=== PATIENT | female | born 1990 | race Two or more races ===

== ENCOUNTER 2018-09-07 16:00 | Observation (INO) | payer MEDICAID ==
[~2018-09-07] VITALS: Ht 165.1 cm; Wt 84.8 kg
[2018-09-07] MEDS ORDERED: PNV1TABL50 MT (16:39)
[2018-09-07 18:24] LABS: CLARITY URINE CLOUDY (CLEAR); COLOR URINE YELLOW (YELLOW); KETONES URINE TRACE (NEGATIVE); LEUKOCYTE ESTERASE URINE 2+ (NEGATIVE); NITRITE URINE NEGATIVE (NEGATIVE); OCCULT BLOOD URINE 1+ (NEGATIVE); PH URINE 6.5 (4.5-8.0); PROTEIN URINE TRACE (NEGATIVE); SPECIFIC GRAVITY URINE 1.026 (1.005-1.030)
[2018-09-07] MEDS ORDERED: LACTATED RINGERS 1,000 ML IV SCH (21:00)
[2018-09-07] MEDS ORDERED: CEFAZOLIN SODIUM 1000MG/VIAL IV ONE (21:00)
[2018-09-07] MEDS ORDERED: CEFAZOLIN 2000MG in DEXTROSE 5% WATER 100ML IV NR (21:30)
== END 2018-09-07 22:15 | disposition still patient (30) ==
LOC: 8 EST LDRP 16:00
PROVIDERS: ADMIT Obstetrics & Gynecology; ATTEND Obstetrics & Gynecology
DX: O42.913 Preterm premature rupture of membranes, unspecified as to length of time between rupture and onset of labor, third trimester (principal); O62.9 Abnormality of forces of labor, unspecified; Z3A.36 36 weeks gestation of pregnancy
CPT/HCPCS: 76805; 76818; 81003; 87086; 96365; G0378; J0690; 99281; J7060

== ENCOUNTER 2018-09-16 23:12 | Inpatient (IN) | payer MEDICAID ==
[~2018-09-16] VITALS: Ht 165.1 cm; Wt 83.9 kg
[~2018-09-16 23:12] MED LIST: PNV1TABL50 MT
[2018-09-16] MEDS ORDERED: LACTATED RINGERS 1,000 ML IV SCH (23:29)
[2018-09-16] MEDS ORDERED: DEXT 5%/LR + PITOCIN 20UNITS/L 1,000 ML IV SCH (23:29)
[2018-09-16] MEDS ORDERED: CARBOPROST TROMETHAMINE 250 MCG/ML AMPUL IM PRN (23:30)
[2018-09-16] MEDS ORDERED: METHYLERGONOVINE MALEATE 0.2 MG/ML IM PRN (23:30)
[2018-09-16] MEDS ORDERED: DEXT 5%/LACTATED RINGERS 1,000 ML IV SCH (23:30)
[2018-09-17 00:54] LABS: EOSINOPHILS % 0.4 % (0.0-5.0); HEMATOCRIT. 32.5 % (36.0-48.0); HEMOGLOBIN. 10.5 g/dL (12.0-16.0); LYMPHOCYTES % 18.9 % (20.0-50.0); MEAN CORPUSCULAR HEMOGLOBIN 24.6 pg (28.0-32.0); MEAN CORPUSCULAR VOLUME 75.9 fL (81.0-99.0); MEAN PLATELET VOLUME 9.3 fl (7.4-10.4); MONOCYTES % 6.8 % (2.0-8.0); NEUTROPHILS % 72.9 % (40.0-76.0); PLATELET 254 x1000/uL (130-400); RED BLOOD CELL COUNT 4.28 mill/uL (4.2-5.4)
[2018-09-17 01:07] LABS: INR 0.9; PARTIAL THROMBOPLASTIN TIME 24.6 sec (23.4-31.0); PROTHROMBIN TIME 9.5 sec (9.1-11.1)
[2018-09-17 01:40] LABS: HEPATITIS B SURFACE ANTIGEN NEGATIVE
[2018-09-17] MEDS ORDERED: MEPERIDINE HCL/PF 25MG/ML CPJ IV PRN (03:30)
[2018-09-17] MEDS ORDERED: ONDANSETRON HCL 4MG/2ML INJ IV PRN (03:30)
[2018-09-17] MEDS ORDERED: LABETALOL 5MG/ML SYR 20 MG/4 ML SYRINGE IV PRN (03:30)
[2018-09-17] MEDS ORDERED: HYDROMORPHONE HCL/PF 2MG/ML CPJ IV PRN ×2 (03:30→04:30)
[2018-09-17] MEDS ORDERED: KETOROLAC 30MG/ML VIAL IV PRN (03:30)
[2018-09-17] MEDS ORDERED: MORPHINE SULFATE/PF 1MG/ML 10ML AMP ONE (03:38)
[2018-09-17] MEDS ORDERED: BUPIVACAINE HCL/DEXTROSE/PF 0.75% 2ML AMP INJ ONE (03:39)
[2018-09-17] MEDS ORDERED: GLYCOPYRROLATE 0.2 MG/ML 2ML VIAL ONE (04:01)
[2018-09-17] MEDS ORDERED: DEXAMETHASONE 4MG/ML 1ML VIAL ONE (04:17)
[2018-09-17] MEDS ORDERED: ONDANSETRON HCL 4MG/2ML INJ ONE (04:17)
[2018-09-17] MEDS ORDERED: OXYTOCIN 10 UNITS/ML 1ML ONE (04:17)
[2018-09-17] MEDS ORDERED: CEFAZOLIN SODIUM 1000MG/VIAL ONE (04:17)
[2018-09-17] MEDS ORDERED: SODIUM CHLORIDE 0.9% 10ML VIAL ONE (04:17)
[2018-09-17] MEDS ORDERED: ACETAMINOPHEN WITH CODEINE 300/30MG TABLET PO PRN (04:30)
[2018-09-17] MEDS ORDERED: DEXT 5%/LR + PITOCIN 20UNITS/L 1,000 ML IV SCH (04:30)
[2018-09-17] MEDS ORDERED: RHO(D) IMMUNE GLOBULIN 300 MCG/SYR IM PRN (04:30)
[2018-09-17] MEDS ORDERED: IBUPROFEN 400MG TABLET PO PRN (04:30)
[2018-09-17 10:00] VITALS: BP 99/56
[2018-09-17] MEDS ORDERED: LACTATED RINGERS 1,000 ML IV SCH (15:15)
[2018-09-17 17:21] VITALS: BP 96/49
[2018-09-17 20:00] VITALS: BP 94/51
[2018-09-17] MEDS: BISACODYL 10MG SUPP PR PRN (22:31)
[2018-09-18 01:05] LABS: *AMPHETAMINES SCREEN URINE NEGATIVE (NEGATIVE)
[2018-09-18 01:06] LABS: *BARBITURATES SCREEN URINE NEGATIVE (NEGATIVE); *BENZODIAZEPINES SCREEN URINE NEGATIVE (NEGATIVE); METHADONE URINE SCREEN NEGATIVE (NEGATIVE); OPIATES URINE SCREEN NEGATIVE (NEGATIVE)
[2018-09-18 01:07] LABS: CANNABINOID URINE SCREEN NEGATIVE (NEGATIVE); CLARITY URINE CLOUDY (CLEAR); KETONES URINE NEGATIVE (NEGATIVE); LEUKOCYTE ESTERASE URINE 1+ (NEGATIVE); NITRITE URINE NEGATIVE (NEGATIVE); OCCULT BLOOD URINE 3+ (NEGATIVE); PH URINE 6.5 (4.5-8.0); PHENCYCLIDINE URINE SCREEN NEGATIVE (NEGATIVE); PROTEIN URINE 1+ (NEGATIVE); SPECIFIC GRAVITY URINE 1.007 (1.005-1.030); UROBILINOGEN URINE 0.2 E.U./dL (0.2-1.0)
[2018-09-18 01:14] LABS: *COCAINE SCREEN URINE NEGATIVE (NEGATIVE)
[2018-09-18 01:16] LABS: COLOR URINE BLOODY (YELLOW)
[2018-09-18] MEDS: BISACODYL 10MG SUPP PR PRN (04:00)
[2018-09-18 09:00] VITALS: BP 108/64
[2018-09-18] MEDS: IBUPROFEN 800MG TABLET PO PRN (09:21)
[2018-09-18 09:33] LABS: BASOPHILS % 0.5 % (0.0-2.0); EOSINOPHILS % 0.5 % (0.0-5.0); HEMATOCRIT. 27.5 % (36.0-48.0); LYMPHOCYTES % 16.3 % (20.0-50.0); MEAN CORPUSCULAR HEMOGLOBIN 24.8 pg (28.0-32.0); MEAN PLATELET VOLUME 8.1 fl (7.4-10.4); MONOCYTES % 8.8 % (2.0-8.0); NEUTROPHILS % 73.9 % (40.0-76.0); PLATELET 185 x1000/uL (130-400); RED BLOOD CELL COUNT 3.62 mill/uL (4.2-5.4); RED CELL DISTRIBUTION WIDTH 16.4 % (11.6-14.6)
[2018-09-18 15:30] VITALS: BP 102/70
[2018-09-18 19:10] VITALS: BP 100/69
[2018-09-19] MEDS: IBUPROFEN 800MG TABLET PO PRN ×2 (02:57→12:54)
[2018-09-19 03:30] VITALS: BP 105/59
[2018-09-19 09:18] VITALS: BP 103/53
[2018-09-19 15:59] VITALS: BP 99/69
[2018-09-19 20:00] VITALS: BP 95/58
[2018-09-19 23:50] VITALS: BP 95/49
[2018-09-20 04:00] VITALS: BP 108/59
[2018-09-20 09:00] VITALS: BP 104/71
== END 2018-09-20 13:15 | disposition home or self-care (01) | DRG 540 ==
LOC: 8 EST LDRP 23:12 → OBSVTOIN 23:12 → 8EST 09-17 12:47
PROVIDERS: ADMIT Obstetrics & Gynecology; ATTEND Obstetrics & Gynecology
PROC: 10D00Z1 Extraction of Products of Conception, Low, Open Approach (ICD-10-PCS; principal; 2018-09-17)
DX: O34.211 Maternal care for low transverse scar from previous cesarean delivery (principal); O45.93 Premature separation of placenta, unspecified, third trimester; Z37.0 Single live birth; Z3A.37 37 weeks gestation of pregnancy; D64.9 Anemia, unspecified; O90.81 Anemia of the puerperium
CPT/HCPCS: 36415; 76815; 76818; 80305; 86592; 86703; 86762; 86850; 86900; 86920; 87340; 88307; 99281; G0378; J0690; J1100; J2274; J2405; J2590; J3490; J7120; J7121; A4315